=== PATIENT | female | born 1945 | race African-American/Black ===

== ENCOUNTER 2019-01-06 05:30 | Inpatient (IN) | payer OTHER ==
[~2019-01-06 05:30] MED LIST: LACTATED RINGER'S 1,000 ML IV*
[2019-01-06] MEDS: CEFAZOLIN 2 GM/50 ML (PMX) 50 ML IVPB (05:30)
[2019-01-06] MEDS: POLYMYXIN/BACITRACIN 1L IRRIG (07:20)
[2019-01-06] MEDS ORDERED: FENTAnyl 50 MCG/ML VIAL ×2 (07:41→07:52)
[2019-01-06] MEDS: BUPIVACAINE 0.25% (MPF) 30 ML INJ (07:54)
[2019-01-06] MEDS: GELATIN SIZE 100 SPONGE (07:54)
[2019-01-06] MEDS: SURGIFOAM POWDER 1 GM KIT (07:54)
[2019-01-06] MEDS: BUPIVACAINE 0.25%/EPI (SDV) 30 ML INJ (07:54)
[2019-01-06] MEDS: THROMBIN (BOVINE) 5,000 UNIT VIAL TP (07:54)
[2019-01-06] MEDS: SOD CHLORIDE 0.9% 1,000 ML IV ×2 (08:00→19:10)
[2019-01-06] MEDS ORDERED: HYDROmorphONE 2 MG/ML SYG (08:20)
[2019-01-06] MEDS ORDERED: ONDANSETRON 4 MG INJ (09:44)
[2019-01-06] MEDS ORDERED: PROPOFOL 40 ML (09:44)
[2019-01-06] MEDS ORDERED: SUCCINYLCHOLINE CHLORIDE 100 MG/5 ML SYG IV (09:44)
[2019-01-06] MEDS ORDERED: NEOSTIGMINE 3 MG/3 ML SYRINGE (09:44)
[2019-01-06] MEDS ORDERED: GLYCOPYRROLATE 0.4 MG INJ (09:44)
[2019-01-06] MEDS ORDERED: FAMOTIDINE 20 MG INJ (09:44)
[2019-01-06] MEDS ORDERED: ROCURONIUM 50 MG INJ (09:44)
[2019-01-06] MEDS ORDERED: DEXAMETHASONE 4 MG/ML 5 ML INJ (09:44)
[2019-01-06] MEDS ORDERED: LIDOCAINE 2% (SDV) 5 ML INJ (09:44)
[2019-01-06] MEDS ORDERED: EPHEDrine 25 MG/5 ML SYG (10:50)
[2019-01-06] MEDS ORDERED: PHENYLephrine (100 MCG/ML) 10ML SYG (10:50)
[2019-01-06] MEDS ORDERED: AL HYDROX/MG HYDROX/SIMETH 30 ML CUP PO (11:30)
[2019-01-06] MEDS ORDERED: HYDROCODONE/APAP (5/325) TAB PO (11:30)
[2019-01-06] MEDS ORDERED: ACETAMINOPHEN 325 MG TAB PO (11:30)
[2019-01-06] MEDS ORDERED: PROCHLORPERAZINE 10 MG TAB PO (11:30)
[2019-01-06] MEDS ORDERED: NACL 0.9% 3 ML SYG IV (11:30)
[2019-01-06] MEDS ORDERED: NALOXONE (0.4 MG/ML) INJ IV (11:30)
[2019-01-06] MEDS: HYDROmorphONE 0.2 MG/ML PCA IV (11:52)
[2019-01-06] MEDS ORDERED: MEPERIDINE 25 MG INJ (12:17)
[2019-01-06] MEDS: CEFAZOLIN 1 GM/50 ML (PMX) 50 ML IVPB ×3 (12:30→23:44)
[2019-01-06] MEDS ORDERED: HYDROmorphONE 1 MG/5 ML IV SYRINGE IV ×2 (12:30)
[2019-01-06] MEDS: MEPERIDINE 25 MG INJ IV (12:32)
[2019-01-06] MEDS: ONDANSETRON 4 MG INJ IV (12:33)
[2019-01-06] MEDS: HYDROmorphONE 1 MG/5 ML IV SYRINGE IV (12:37)
[2019-01-06] MEDS ORDERED: GLUCOSE GEL 15 GRAM TUBE PO ×2 (17:00)
[2019-01-06] MEDS ORDERED: GLUCOSE GEL 15 GRAM TUBE BUCCAL (17:00)
[2019-01-06] MEDS ORDERED: DEXTROSE 50% 50 ML SYRINGE IV ×2 (17:00)
[2019-01-06] MEDS ORDERED: GLUCAGON 1 MG INJ IM (17:00)
[2019-01-06] MEDS: ACCU-CHEK XX (17:59)
[2019-01-06] MEDS: metFORMIN 500 MG TAB PO (18:09)
[2019-01-06] MEDS: ACARBOSE 50 MG TAB PO (18:49)
[2019-01-06] MEDS: ATORVASTATIN 10 MG TAB PO (21:09)
[2019-01-06] MEDS: glipiZIDE 10 MG TAB PO (21:10)
[2019-01-07] MEDS: HYDROmorphONE 0.2 MG/ML PCA IV (01:18)
[2019-01-07] MEDS: CEFAZOLIN 1 GM/50 ML (PMX) 50 ML IVPB (05:04)
[2019-01-07 05:05] LABS: ADD MAN DIFF? NO
[2019-01-07 05:15] LABS: WHITE BLOOD COUNT 13.6 10^3/ul (4.8-10.8)
[2019-01-07 05:15] LABS: BASOPHIL # 0.1 10^3/ul (0.0-0.1); BASOPHILS % 0.4 % (0.0-2.0); EOSINOPHILS % 0.3 % (0.0-7.0); HEMATOCRIT 34.4 % (37.0-47.0); HEMOGLOBIN 10.9 g/dl (12.0-16.0); LYMPHOCYTES # 3.4 10^3/ul (0.8-2.9); LYMPHOCYTES % 25.3 % (15.0-51.0); MEAN CORPUSCULAR HEMOGLOBIN 28.1 pg (29.0-33.0); MEAN CORPUSCULAR HGB CONC 31.7 g/dl (32.0-37.0); MEAN CORPUSCULAR VOLUME 88.7 fl (82.0-101.0); MEAN PLATELET VOLUME 9.8 fl (7.4-10.4); MONOCYTE # 1.1 10^3/ul (0.3-0.9); MONOCYTES % 8.3 % (0.0-11.0); NEUTROPHIL # 8.9 10^3/ul (1.6-7.5); NEUTROPHILS % 65.3 % (39.0-77.0); PLATELET COUNT 279 10^3/UL (140-415); RED BLOOD COUNT 3.88 10^6/ul (4.20-5.40); RED CELL DISTRIBUTION WIDTH 13.2 % (11.5-14.5)
[2019-01-07 05:47] LABS: ANION GAP 7 (5-13); BLOOD UREA NITROGEN 24 mg/dl (7-20); CALCIUM 9.5 mg/dl (8.4-10.2); CARBON DIOXIDE 28 mmol/L (21-31); CHLORIDE 108 mmol/L (97-110); CREATININE 0.74 mg/dl (0.44-1.00); GLUCOSE 109 mg/dl (70-220); POTASSIUM 4.6 mmol/L (3.5-5.1); SODIUM 143 mmol/L (135-144)
[2019-01-07] MEDS: metFORMIN 500 MG TAB PO ×2 (09:05→17:51)
[2019-01-07] MEDS: DOCUSATE SODIUM 100 MG CAP PO ×2 (09:06→20:06)
[2019-01-07] MEDS: glipiZIDE 10 MG TAB PO ×2 (09:06→17:51)
[2019-01-07] MEDS: ACARBOSE 50 MG TAB PO ×2 (09:06→17:51)
[2019-01-07] MEDS: LISINOPRIL 10 MG TAB PO (09:07)
[2019-01-07] MEDS: ACCU-CHEK XX ×2 (09:07→17:50)
[2019-01-07] MEDS: HYDROCODONE/APAP (5/325) TAB PO ×3 (10:26→18:29)
[2019-01-07] MEDS: ATORVASTATIN 10 MG TAB PO (20:06)
[2019-01-08] MEDS: HYDROCODONE/APAP (5/325) TAB PO ×3 (01:38→12:14)
[2019-01-08] MEDS: ACARBOSE 50 MG TAB PO (08:05)
[2019-01-08] MEDS: glipiZIDE 10 MG TAB PO (08:05)
[2019-01-08] MEDS: metFORMIN 500 MG TAB PO (08:06)
[2019-01-08] MEDS: DOCUSATE SODIUM 100 MG CAP PO (08:06)
[2019-01-08] MEDS: ACCU-CHEK XX (08:07)
[2019-01-08] MEDS: LISINOPRIL 10 MG TAB PO (09:00)
[2019-01-08] MEDS: CYCLOBENZAPRINE 10 MG TAB PO (09:50)
== END 2019-01-08 14:17 | disposition home or self-care (01) | DRG 517 ==
LOC: REC 05:30 → MS1 12:47
PROVIDERS: Orthopaedic Surgery
PROC: 01NB0ZZ Release Lumbar Nerve, Open Approach (ICD-10-PCS; principal; 2019-01-06 07:40)
DX: M48.062 Spinal stenosis, lumbar region with neurogenic claudication (principal); E11.9 Type 2 diabetes mellitus without complications; E78.5 Hyperlipidemia, unspecified; I10 Essential (primary) hypertension; Z85.528 Personal history of other malignant neoplasm of kidney; Z90.5 Acquired absence of kidney
CPT/HCPCS: 72110; 80048; 82962; 85025; 87086; 97116; 97161; 97530